=== PATIENT | female | born 1990 | race Caucasian/White ===

== ENCOUNTER → 2019-10-10 | Outpatient (CLI) | payer BC ==
[~2019-10-10] MED LIST: GADOTERATE 7.5 MMOL/15ML VIAL. IVP ONE
--- NOTE | 2019-10-10 11:51 | KCIC ---
MRI Brain with and without contrast History: Right hand numbness and weakness Technique: Multiplanar, multi sequential pre and postcontrast MR imaging was performed of the brain. Comparison: None Findings: There is some motion degradation. There is no evidence of recent infarct or cytotoxic edema. The ventricles, sulci, and cisterns are within normal limits in size and configuration. There is no significant midline shift, intraaxial mass effect, or focal abnormal extra-axial fluid collection. There is no significant signal abnormality including hemosiderin deposition of the brain parenchyma. There is no nodular parenchymal or leptomeningeal enhancement. There is preservation of the major intracranial flow-voids at the skull base. The cerebellar tonsils are normal in location. There is no significant abnormality of the pineal gland or pituitary gland. There is [id number] right maxillary sinus mucosal thickening, very minimally of the left maxillary sinus and of the ethmoid air cells greater on the right. The is also negligible sphenoid sinus mucosal thickening. The mastoid air cells are aerated. There is preserved marrow signal of the clivus. Impression: 1. There is no significant intracranial abnormality. 2. There is paranasal sinus mucosal thickening as stated. Electronically signed by: Tay Flores MD (10/10/2019 11:48 AM) [email or web address]
== END | disposition home or self-care (01) ==
LOC: KCIC MRI 09:56
PROVIDERS: ATTEND Orthopaedic Surgery
DX: J34.89 Other specified disorders of nose and nasal sinuses (principal); R20.0 Anesthesia of skin; R29.898 Other symptoms and signs involving the musculoskeletal system; M79.641 Pain in right hand
CPT/HCPCS: 70553; A9575

== ENCOUNTER 2021-05-22 14:40 | Emergency (ER) | payer BC ==
[~2021-05-22] VITALS: Ht 162.6 cm; Wt 99.0 kg
[2021-05-22] MEDS ORDERED: IV NORMAL SALINE 1000ML BAG 1,000 ML IV ONE ×2 (15:30→19:00)
[2021-05-22 15:58] LABS: BASO # 0.1 x10^3/uL (0.0-0.2); BASO % 1 % (0-3); EOS % 0 % (0-3); HEMATOCRIT 35.6 % (36.0-47.0); HEMOGLOBIN 12.1 g/dL (12.0-15.5); LYMPH # 1.2 x10^3/uL (1.0-4.8); LYMPH % 10 % (24-48); MEAN CORPUSCULAR HEMOGLOBIN 30 pg (25-35); MEAN CORPUSCULAR HGB CONC 34 g/dL (31-37); MEAN CORPUSCULAR VOLUME 89 fL (79-100); MONO # 0.7 x10^3/uL (0.0-1.1); MONO % 6 % (0-9); NEUT # 9.4 x10^3/uL (1.8-7.7); NEUT % 83 % (31-73); PLATELET COUNT 253 x10^3/uL (140-400); RED BLOOD COUNT 3.99 x10^6/uL (3.50-5.40); RED CELL DISTRIBUTION WIDTH 12.8 % (11.5-14.5); WHITE BLOOD COUNT 11.3 x10^3/uL (4.0-11.0)
[2021-05-22 16:08] LABS: CREATININE 0.7 mg/dL (0.6-1.0); GFR 97.6; POTASSIUM 4.3 mmol/L (3.5-5.1)
[2021-05-22 16:14] LABS: ALBUMIN 3.9 g/dL (3.4-5.0); ALBUMIN/GLOBULIN RATIO 1.1 (1.0-1.7); TOTAL BILIRUBIN 0.3 mg/dL (0.2-1.0); TOTAL PROTEIN 7.3 g/dL (6.4-8.2)
[2021-05-22 17:02] LABS: BILIRUBIN,URINE NEGATIVE (NEG); CLARITY,URINE CLEAR; COLOR,URINE YELLOW; NITRITE,URINE NEGATIVE (NEG); PROTEIN,URINE NEGATIVE (NEG-TRACE); UROBILINOGEN,URINE 0.2 mg/dL (0.2 mg/dL)
[2021-05-22 17:09] LABS: BACTERIA,URINE MODERATE /HPF (0-FEW)
[2021-05-22] MEDS ORDERED: PROCHLORPERAZINE 10 MG/2 ML VIAL. IV ONE (17:30)
--- NOTE | 2021-05-22 18:04 | PHYS DOC ---
Past Medical History Additional Past Medical Histor: [facility] "I HAVE A HEARING AID" Past Surgical History: Smoking Status: Never Smoker Alcohol Use: None General Adult EDM: Chief Complaint: NAUSEA/VOMITING/DIARRHEA HPI: HPI: Patient is a 30 year old female who presents with patient was seen at [facility] today for vomiting, chills, legs aching and coughing up yellow phlegm. Patient states that she recently got her first Pfizer vaccine last week. Patient states risk for family is vaccinated for Covid. Patient states that she is very scared and anxious because everybody keeps telling her that she might have Covid. She states that she does not know where she will get Covid because she only goes out on Sunday and Sunday nights. Patient did go to the [employer] game today after she left [facility] and ate dipping dots, orange juice. She then began vomiting. She realized that she was not okay to go to the [employer] game today. She stated that they called [facility] and they stated that if she could not handle being at home keep fluids down that she should come back to the emergency room. She stated that the paperwork from [email or web address] had said to go to the closest facility. Patient states we are the closest facility. Patient is very anxious. Patient denies abdominal pain, headache, dizziness, syncope, numbness or tingling, focal weakness, chest pain, shortness of air. Patient states she has a history of GERD of which she takes omeprazole. She states that over in [facility] gave her Zofran and then she took a dissolvable Zofran when she started vomiting at the [employer] game. Review of Systems: Review of Systems: Constitutional: Denies fever or +chills. [] Eyes: Denies change in visual acuity. [] HENT: Denies nasal congestion or sore throat. [] Respiratory: Denies cough or shortness of breath. [] Cardiovascular: Denies chest pain or edema. [] GI: Denies abdominal pain, +nausea, +vomiting, bloody stools or diarrhea. [] : Denies dysuria. [] Musculoskeletal: Denies back pain or joint pain. + Body aches [] Integument: Denies rash. [] Neurologic: Denies headache, focal weakness or sensory changes. [] Endocrine: Denies polyuria or polydipsia. [] Lymphatic: Denies swollen glands. [] Psychiatric: Denies depression or anxiety. [] Heart Score: C/O Chest Pain: No Risk Factors: Risk Factors: DM, Current or recent (<one month) smoker, HTN, HLP, family history of CAD, obesity. Risk Scores: Score 0 - 3: 2.5% MACE over next 6 weeks - Discharge Home Score 4 - 6: 20.3% MACE over next 6 weeks - Admit for Clinical Observation Score 7 - 10: 72.7% MACE over next 6 weeks - Early Invasive Strategies Current Medications: Current Medications Medications (Trade) Dose Ordered Sig/Miguel Start Time Stop Time Status Last Admin Dose Admin Prochlorperazine Edisylate (Compazine) 10 mg 1X ONCE 05/22/21 17:30 05/22/21 17:31 DC Sodium Chloride 1,000 ml @ 1,000 mls/hr 1X ONCE 05/22/21 15:30 05/22/21 16:29 DC 05/22/21 15:43 1,000 MLS/HR Allergies: Allergies: Allergies Coded Allergies Type Severity Reaction Last Updated Verified No Known Drug Allergies 10/10/19 No Physical Exam: PE: Constitutional: Well developed, well nourished, no acute distress, non-toxic appearance. [] HENT: Normocephalic, atraumatic, bilateral external ears normal, oropharynx moist, no oral exudates, nose normal. [] Eyes: PERRLA, EOMI, conjunctiva normal, no discharge. [] Neck: Normal range of motion, no tenderness, supple, no stridor. [] Cardiovascular:Heart rate regular rhythm, no murmur [] Lungs & Thorax: Bilateral breath sounds clear to auscultation [] Abdomen: Bowel sounds normal, soft, no tenderness, no masses, no pulsatile masses. [] Skin: Warm, dry, no erythema, no rash. [] Back: No tenderness, no CVA tenderness. [] Extremities: No tenderness, no cyanosis, no clubbing, ROM intact, no edema. [] Neurologic: Alert and oriented X 3, normal motor function, normal sensory function, no focal deficits noted. [] Psychologic: Affect normal, judgement normal, mood normal. Anxious [] Current Patient Data: Labs: Laboratory Tests Test 05/22/21 15:45 8/22/21 16:45 White Blood Count 11.3 x10^3/uL (4.0-11.0) H Red Blood Count 3.99 x10^6/uL (3.50-5.40) Hemoglobin 12.1 g/dL (12.0-15.5) Hematocrit 35.6 % (36.0-47.0) L Mean Corpuscular Volume 89 fL (79-100) Mean Corpuscular Hemoglobin 30 pg (25-35) Mean Corpuscular Hemoglobin Concent 34 g/dL (31-37) Red Cell Distribution Width 12.8 % (11.5-14.5) Platelet Count 253 x10^3/uL (140-400) Neutrophils (%) (Auto) 83 % (31-73) H Lymphocytes (%) (Auto) 10 % (24-48) L Monocytes (%) (Auto) 6 % (0-9) Eosinophils (%) (Auto) 0 % (0-3) Basophils (%) (Auto) 1 % (0-3) Neutrophils # (Auto) 9.4 x10^3/uL (1.8-7.7) H Lymphocytes # (Auto) 1.2 x10^3/uL (1.0-4.8) Monocytes # (Auto) 0.7 x10^3/uL (0.0-1.1) Eosinophils # (Auto) 0.0 x10^3/uL (0.0-0.7) Basophils # (Auto) 0.1 x10^3/uL (0.0-0.2) Sodium Level 142 mmol/L (136-145) Potassium Level 4.3 mmol/L (3.5-5.1) Chloride Level 103 mmol/L (98-107) Carbon Dioxide Level 27 mmol/L (21-32) Anion Gap 12 (6-14) Blood Urea Nitrogen 6 mg/dL (7-20) L Creatinine 0.7 mg/dL (0.6-1.0) Estimated GFR (Cockcroft-Gault) 97.6 BUN/Creatinine Ratio 9 (6-20) Glucose Level 103 mg/dL (70-99) H Calcium Level 9.0 mg/dL (8.5-10.1) Total Bilirubin 0.3 mg/dL (0.2-1.0) Aspartate Amino Transferase (AST) 18 U/L (15-37) Alanine Aminotransferase (ALT) 28 U/L (14-59) Alkaline Phosphatase 71 U/L (46-116) Total Protein 7.3 g/dL (6.4-8.2) Albumin 3.9 g/dL (3.4-5.0) Albumin/Globulin Ratio 1.1 (1.0-1.7) Lipase 62 U/L (73-393) L Urine Collection Type Unknown Urine Color Yellow Urine Clarity Clear Urine pH 6.0 (<5.0-8.0) Urine Specific [place] >=1.030 (1.000-1.030) Urine Protein Negative mg/dL (NEG-TRACE) Urine Glucose (UA) Negative mg/dL (NEG) Urine Ketones (Stick) 40 mg/dL (NEG) Urine Blood Trace (NEG) Urine Nitrite Negative (NEG) Urine Bilirubin Negative (NEG) Urine Urobilinogen Dipstick 0.2 mg/dL (0.2 mg/dL) Urine Leukocyte Esterase Small (NEG) Urine RBC 1-2 /HPF (0-2) Urine WBC 5-10 /HPF (0-4) Urine Squamous Epithelial Cells Mod /LPF Urine Bacteria Moderate /HPF (0-FEW) Urine Mucus Marked /LPF Laboratory Tests 05/22/21 15:45 Laboratory Tests 05/22/21 15:45 Vital Signs: Vital Signs Date Time Temp Pulse Resp B/P (MAP) Pulse Ox O2 Delivery O2 Flow Rate FiO2 05/22/21 15:10 98.7 100 12 165/97 95 Room Air 98.7 EKG: EKG: [] Radiology/Procedures: Radiology/Procedures: [] Impression: [facility] [address] [place], [place] [id number] IMAGING REPORT Signed PATIENT: KEYSHAWN FIELD ACCOUNT: [id number] : 1990 LOCATION: ER AGE: 30 SEX: F EXAM STATUS: PRE ER ORD. PHYSICIAN: VICTOR HUGO HO APRN REASON: vomiting PROCEDURE: PORTABLE CHEST 1V XR CHEST 1V History: Reason: vomiting / Spl. Instructions: / History: Comparison: None. Findings: Mild ill-defined bibasilar opacities. No pleural effusion. No pneumothorax. Normal heart size. Impression: 1. Mild ill-defined bibasilar opacities, may represent atelectasis or developing infiltrates. If persistent clinical concern, recommend follow-up. Electronically signed by: Jelani Chavira DO (05/22/2021 6:14 PM) [facility] DICTATED and SIGNED BY: JELANI CHAVIRA DO DATE: 05/22/21 [id number] 0 Course & Med Decision Making: Course & Med Decision Making Pertinent Labs and Imaging studies reviewed. (See chart for details) COVID-19 CRITERIA: The patient was evaluated during the global COVID-19 pandemic, and that diagnosis was suspected/considered upon their initial presentation. Their evaluation, treatment and testing was consistent with current guidelines for patients who present with complaints or symptoms that may be related to COVID-19. See HPI. Alert and oriented x4. Ambulatory steady gait. Speaks in full clear sentences. Very anxious about her health and what may be happening to her. Skin pink warm and dry. She states she feels like she has the flu. Lungs are clear to auscultation all lobes. Abdomen is soft and nontender. Chest x-ray shows Covid. Patient's was on the phone and has cursed me out stating he had Covid and he did not have the same symptoms that she does. It has been explained to patient that she can still catch Covid even though she is not vaccinated. It is explained to the patient that because she does go out on Sunday and Saturdays that she can catch Covid. Patient states that [facility] just did a CT abdomen pelvis and did not do a chest x-ray. Patient is asking why they did not do a chest x-ray. Patient is asking why the Covid is not coming back sooner. I told her that we usually do a rapid Covid only if being admitted. Patient is asking to be admitted and states that she is nauseated she is going to go home and she will not be able to keep any fluids down. She states she does not want a go home and she wants to be admitted. Patient does not meet criteria for admission. I have ordered her azithromycin for pneumonia. She is had 2 L of normal saline. She has kept on water she does very nauseated. Patient states that she spit up slightly. Patient has already a prescription at home for nausea medicine. Patient is to go home and quarantine. [] Alessandra Disclaimer: Alessandra Disclaimer: This electronic medical record was generated, in whole or in part, using a voice recognition dictation system. COVID-19 Patient Risks: Age 65 or older: No Sign of co-morbidity: Yes Exp to person + for COVID: No Exp to PUI: No Travel from affected area: No Lower respiratory symptoms: Yes Fever: No Other: Yes (N/V) PPE Use: Full PPE with N95 mask or PAPR: Yes Departure Departure Impression: Primary Impression: Pneumonia Qualified Codes: J18.9 - Pneumonia, unspecified organism Additional Impressions: Person under investigation for COVID-19 Nausea & vomiting Qualified Codes: R11.2 - Nausea with vomiting, unspecified Dehydration Disposition: 01 HOME / SELF CARE / HOMELESS Condition: STABLE Referrals: NO PCP (PCP) Patient Instructions: Dehydration, Adult, Nausea and Vomiting, Pneumonia, Adult Additional Instructions: Follow-up with a primary care provider. Drink plenty of fluids. Rest. Quarantine. Take Tylenol or ibuprofen for any of your pain. If you are unable to keep fluids down return to the emergency room. Scripts Albuterol Sulfate (PROAIR HFA INHALER) 8.5 Gm Hfa.aer.ad 1 PUFF INH PRN Q6HRS PRN for SHORTNESS OF BREATH, #1 EACH 0 Refills Prov: VICTOR HUGO HO APRN 05/22/21 Methylprednisolone (MEDROL) 4 Mg Tab.ds.pk 1 PKG PO UD, #1 PKG Prov: VICTOR HUGO HO APRN 05/22/21 Azithromycin (AZITHROMYCIN TABLET) 250 Mg Tablet 1 PKG PO UD for 5 Days, #6 TAB 0 Refills 2 the first day followed by 1 for days 2-5 Prov: VICTOR HUGO HO APRN 05/22/21 VICTOR HUGO HO APRN May 22, 2021 18:04
--- NOTE | 2021-05-22 18:16 | RAD ---
XR CHEST 1V History: Reason: vomiting / Spl. Instructions: / History: Comparison: None. Findings: Mild ill-defined bibasilar opacities. No pleural effusion. No pneumothorax. Normal heart size. Impression: 1. Mild ill-defined bibasilar opacities, may represent atelectasis or developing infiltrates. If per sistent clinical concern, recommend follow-up. Electronically signed by: Jelani Lora DO (05/22/2021 6:14 PM) [facility]
[2021-05-22] MEDS ORDERED: AZITHRMYCN 500MG IVPB FOR OMNI 250 ML IV ONE (19:00)
[2021-05-22] MEDS ORDERED: AZIT250T6 PO (20:32)
[2021-05-22] MEDS ORDERED: ALBU2.5V8 INH (20:32)
[2021-05-22] MEDS ORDERED: METH4TAB2 PO (20:32)
[2021-05-22 20:55] VITALS: BP 118/63
--- NOTE | 2021-05-23 16:19 | NUR ---
IP: Informed pt of negative covid test. Pt verbalized understanding.
== END 2021-05-22 22:55 | disposition home or self-care (01) ==
LOC: ER 14:40
DX: J18.9 Pneumonia, unspecified organism (principal); Z20.822 Contact with and (suspected) exposure to COVID-19; R11.2 Nausea with vomiting, unspecified; E86.0 Dehydration
CPT/HCPCS: 36415; 71045; 80053; 81001; 81025; 83690; 85025; 87086; 87426; 96361; 96365; 96375; 99285; J0456; J0780; J7030; U0003; U0005